=== PATIENT | male | born 1980 | race Caucasian/White ===

== ENCOUNTER 2022-01-01 07:30 | Outpatient (RCR) | payer BC, SELFPAY | END 2022-11-12 23:59 | disposition home or self-care (01) | PROVIDERS: Visit Provider Nurse Practitioner Family | DX: M77.8 Other enthesopathies, not elsewhere classified (principal); M25.522 Pain in left elbow; Z51.89 Encounter for other specified aftercare | CPT/HCPCS: 97035; 97110; 97116; 97140; 97161 ==